=== PATIENT | female | born 1945 | race Caucasian/White ===

== ENCOUNTER 2019-09-11 20:45 | Inpatient (IN) | payer MEDICARE ==
[~2019-09-11] VITALS: Ht 170.2 cm; Wt 77.2 kg
--- NOTE | 2019-09-11 20:45 | NUR ---
Dr. Jacobs at bedside for MSE
--- NOTE | 2019-09-11 20:52 | NUR ---
Patient BIB [facility] via gurney c/o RIGHT ankle dislocation s/p fall. Patient A&O x4. Patient received 4mg of zofran in the field. pulses palpable on BLE. redness and discoloration noted on right ankle. patient states able to feel sensation when palpated. cap refill <3 sec. Breathing even and unlabored. no cough, denies SOB. Speech is clear and able to make needs known / follow commands. Denies any / GI distress.
[2019-09-11] MEDS ORDERED: ETOMIDATE 20 MG/10 ML VIAL IV ONE (21:00)
[2019-09-11] MEDS ORDERED: IV NORMAL SALINE 1000 ML BAG IV ONE (21:00)
[2019-09-11] MEDS ORDERED: [UNRECOGNIZED DRUG - REMARK] (21:01)
[2019-09-11] MEDS ORDERED: [UNRECOGNIZED DRUG - REMARK] (21:01)
[2019-09-11] MEDS ORDERED: [UNRECOGNIZED DRUG - REMARK] PO (21:01)
[2019-09-11] MEDS ORDERED: ETOMIDATE 20 MG/10 ML VIAL ONE (21:02)
--- NOTE | 2019-09-11 21:15 | NUR ---
Patient awake A&Ox4. Breathing even and unlabored. denies any discomfort at this time. at bedside
[2019-09-11 21:32] LABS: BASOPHILS % (AUTO) 0.7 % (0.0-2.0); EOSINOPHILS # (AUTO) 0.2 K/uL (0.0-0.7); EOSINOPHILS % (AUTO) 3.5 % (0.0-7.0); HEMATOCRIT 39.1 % (31.2-41.9); LYMPHOCYTES # (AUTO) 1.3 K/uL (20.0-40.0); LYMPHOCYTES % (AUTO) 23.9 % (20.5-51.5); MEAN CORPUSCULAR HEMOGLOBIN 38.6 uug (24.7-32.8); MEAN CORPUSCULAR HGB CONC 33 g/dL (32.3-35.6); MEAN CORPUSCULAR VOLUME 116.1 fL (75.5-95.3); MONOCYTES # (AUTO) 0.7 K/uL (2.0-10.0); MONOCYTES % (AUTO) 12.5 % (0.0-11.0); NEUTROPHILS # (AUTO) 3.2 K/uL (1.8-8.9); NEUTROPHILS % (AUTO) 59.4 % (38.5-71.5); PLATELET COUNT (AUTO) 267 K/uL (179-408); RED BLOOD CELL COUNT(AUTO) 3.37 MIL/uL (3.63-4.92); WHITE BLOOD COUNT (AUTO) 5.4 K/uL (3.8-11.8)
--- NOTE | 2019-09-11 21:32 | NUR ---
[facility] called for Panel placement. care of Arnoldo Lund NP
--- NOTE | 2019-09-11 21:35 | NUR ---
Paged Dr. Spencer for consult
[2019-09-11 21:41] LABS: CREATININE 0.6 mg/dL (0.6-1.3); POTASSIUM 3.6 mmol/L (3.5-5.1)
--- NOTE | 2019-09-11 21:58 | NUR ---
Called for Room / give report. No nurse assigned at this time
--- NOTE | 2019-09-11 22:09 | NUR ---
Dr. Jacobs speaking with Dr. Spencer
[2019-09-11] MEDS ORDERED: TRAMADOL HCL 50 MG TABLET ONE (22:14)
[2019-09-11] MEDS ORDERED: TRAMADOL HCL 50 MG TABLET PO ONE (22:15)
--- NOTE | 2019-09-11 22:30 | NUR ---
Arnoldo Lund E [employer]ER[employer] SPECIALIST at bedside for MSE
[2019-09-11] MEDS ORDERED: Z GUARD REMEDY PASTE 57 GM TUBE TOP PRN (22:45)
[2019-09-11] MEDS ORDERED: MAGNESIUM HYDROXIDE 30 ML LIQUID UDC PO PRN (22:45)
[2019-09-11] MEDS ORDERED: ACETAMINOPHEN 325 MG TABLET PO PRN (22:45)
[2019-09-11] MEDS ORDERED: MORPHINE SULFATE 2 MG/1 ML DISP.SYRIN IV PRN (22:45)
--- NOTE | 2019-09-12 00:30 | NUR ---
Admitted 74y/o Female under the care of Ashely CARROLL. Dx: Right ankle fx. Patient is A&Ox4, noted w/ sugar-tong splint on R leg. IV on L hand intact and patent. Patient on NPO. Admission protocol initiated. Oriented patient to her room and w/ the use of call light. Safety measures observed. Call light in reach
[2019-09-12] MEDS: IV NS 1000 ML 1,000 ML IV PRN ×2 (01:09→16:22)
[2019-09-12 01:50] VITALS: BP 157/79
[2019-09-12] MEDS: MORPHINE SULFATE 2 MG/1 ML DISP.SYRIN IV PRN ×3 (02:31→18:20)
[2019-09-12 06:02] LABS: BASOPHILS % (AUTO) 0.4 % (0.0-2.0); EOSINOPHILS # (AUTO) 0.1 K/uL (0.0-0.7); HEMATOCRIT 37.3 % (31.2-41.9); HEMOGLOBIN 12.5 g/dL (10.9-14.3); LYMPHOCYTES # (AUTO) 1.1 K/uL (20.0-40.0); LYMPHOCYTES % (AUTO) 12.4 % (20.5-51.5); MEAN CORPUSCULAR HEMOGLOBIN 38.7 uug (24.7-32.8); MEAN CORPUSCULAR HGB CONC 34 g/dL (32.3-35.6); MEAN CORPUSCULAR VOLUME 115.6 fL (75.5-95.3); MONOCYTES # (AUTO) 0.9 K/uL (2.0-10.0); MONOCYTES % (AUTO) 9.9 % (0.0-11.0); NEUTROPHILS # (AUTO) 7.1 K/uL (1.8-8.9); NEUTROPHILS % (AUTO) 76.3 % (38.5-71.5); PLATELET COUNT (AUTO) 252 K/uL (179-408); RED BLOOD CELL COUNT(AUTO) 3.23 MIL/uL (3.63-4.92); WHITE BLOOD COUNT (AUTO) 9.2 K/uL (3.8-11.8)
[2019-09-12 06:23] LABS: THYROID STIMULATING HORMONE 3.583 mIU/mL (0.358-3.740)
[2019-09-12 06:27] VITALS: BP 152/74
[2019-09-12 06:34] LABS: ALANINE AMINOTRANSFERASE 29 U/L (14-59); ALKALINE PHOSPHATASE 132 U/L (50-136); ASPARTATE AMINOTRANSFERASE 29 U/L (15-37); BILIRUBIN,TOTAL 0.4 mg/dL (0.2-1.0); CARBON DIOXIDE 25 mmol/L (21-32); CHLORIDE 106 mmol/L (98-107); CHOLESTEROL 240 mg/dL (<200); CREATININE 0.5 mg/dL (0.6-1.3); GLUCOSE 104 mg/dL (74-106); HDL CHOLESTEROL 119 mg/dL (40-60); MAGNESIUM 1.9 mg/dL (1.8-2.4); PHOSPHOROUS 4.2 mg/dL (2.5-4.9); POTASSIUM 4.6 mmol/L (3.5-5.1); TOTAL PROTEIN, SERUM 6.6 g/dL (6.4-8.2); TRIGLYCERIDES 50 MG/DL (30-150); UREA NITROGEN, BLOOD 7 mg/dL (7-18)
--- NOTE | 2019-09-12 07:06 | NUR ---
RECEIVED PATIENT ASLEEP IN BED, EASY TO AROUSE. PATIENT AOX4. PATIENT DENIES PAIN OR SOB AT THIS TIME. LEFT HAND IV IN PLACE AND FLUSHING WELL. SAFETY AND FALL PREVENTION IN PLACE. BED IN LOW POSITION AND LOCKED. CALL LIGHT IN REACH. WILL CONTINUE TO MONITOR.
[2019-09-12] MEDS ORDERED: DULO60CA45 PO (09:08)
[2019-09-12] MEDS ORDERED: BUTA-281 PO (09:09)
[2019-09-12] MEDS ORDERED: POTA10CA43 PO (09:12)
[2019-09-12] MEDS ORDERED: GABA-534 PO (09:13)
[2019-09-12] MEDS ORDERED: RABE20TA18 PO (09:14)
[2019-09-12] MEDS ORDERED: ROSU5TAB PO (09:17)
[2019-09-12] MEDS ORDERED: TOPI25TA49 PO (09:20)
[2019-09-12] MEDS ORDERED: FLUT100D IH (09:20)
[2019-09-12 11:02] VITALS: BP 158/79
[2019-09-12 11:30] VITALS: BP 103/47
[2019-09-12] MEDS ORDERED: POLYMYXIN B SULFATE 500,000 UNITS, BACITRACIN 50,000 UNITS, NORMAL SALINE 20 ML MC ONE ×3 (14:00)
[2019-09-12 15:00] VITALS: BP 175/86
--- NOTE | 2019-09-12 15:19 | NUR ---
CALLED THE OFFICE OF RENEA SANDRA TO LET HIM KNOW THAT THE PATIENT NEEDS CARDIAC CLEARANCE IN ORDER TO GO TO SURGERY SCHEDULED AT [address] WHITEHEAD. ALSO TO LET HIM KNOW THAT PATIENT B/P IS 175/86, HR 102/
--- NOTE | 2019-09-12 15:20 | NUR ---
PAGEOlivia HANKS TO NOTIFY NEED FOR CARDIOLOGY CLEARANCE FOR SURGERY. CALL BACK FROM RECEIVED, MD MADE AWARE OF PATIENT'S CURRENT CONDITION AND LATEST BP OF 175/86 AND MT OF 102. ORDER RECEIVED OF 10MG HYDRALAZINE IV X 1 DOSE PRN. AND TO TRANSFER PATIENT TO TELEMETRY, ORDERS READ BACK AND CARRIED OUT. SERGE HOLLAND NOTIFIED.
[2019-09-12] MEDS ORDERED: hydrALAZINE HCL 20 MG/1 ML VIAL IV ONE (15:45)
[2019-09-12] MEDS: TRAMADOL HCL 50 MG TABLET PO PRN (16:30)
[2019-09-12] MEDS ORDERED: hydrALAZINE HCL 20 MG/1 ML VIAL IV PRN (16:45)
--- NOTE | 2019-09-12 18:03 | NUR ---
PATIENT AWAKE IN BED, AOX4. RT. FOOT SWELLING, PULSES PALPABLE AND STRONG BLE. ABLE TO MOVE TOES OF RT FOOT. PATIENT COMPLAINS OF PAIN AND WAS GIVEN PAIN MEDICATION PRN ORDERED. PATIENT RESPONDS WELL TO MEDICATION. LT. HAND IV INTACT AND FLUSHING WELL. SAFETY AND FALL PREVENTION IN PLACE. CALL LIGHT IN REACH, BED IN LOW POSITION AND LOCKED. SURGERY PLAN FOR TOMORROW AT 1300. PATIENT ORDERED NPO AFTER MIDNIGHT. WILL REPORT TO REMEDIAL MASSEUR RN.
[2019-09-12] MEDS: LISINOPRIL 10 MG TABLET PO SCH (18:12)
--- NOTE | 2019-09-12 19:30 | NUR ---
Received patient in bed awake A&Ox4. at bedside. No SOB noted. R ankle noted swollen, splint in place and elevated w/ pillows. Safety measures observed. Call light in reach
[2019-09-12 20:00] VITALS: BP 148/72
[2019-09-12] MEDS ORDERED: MAG HYDROX/AL HYDROX/SIMETH 30 ML LIQUID UDC PO PRN (22:15)
--- NOTE | 2019-09-12 22:20 | NUR ---
Patient complained of heartburn and requesting for sleeping pill, informed Dr. Montes w/ n.o for Ambien 5mg PO QHS PRN and Mylanta 30ml Q6 PRN
[2019-09-12] MEDS: ZOLPIDEM 5 MG TABLET PO PRN (22:24)
[2019-09-13] VITALS (9 sets, daily range): BP systolic 139–166; BP diastolic 59–80
[2019-09-13] MEDS: MORPHINE SULFATE 2 MG/1 ML DISP.SYRIN IV PRN ×4 (00:35→12:23)
[2019-09-13] MEDS: ONDANSETRON 4 MG/2 ML VIAL IV PRN ×2 (05:50→08:53)
[2019-09-13] MEDS: IV NS 1000 ML 1,000 ML IV PRN (06:15)
--- NOTE | 2019-09-13 06:45 | NUR ---
Patient slept intermittently. c/o 8/10 R ankle pain, PRN pain medication given as ordered. SR on Tele monitor at 95bpm. All needs attended. Patient for sx today ORIF of R ankle at 1330. Remains on NPO. Consent signed placed at chart. Will endorse accordingly
[2019-09-13 07:26] LABS: BASOPHILS % (AUTO) 0.3 % (0.0-2.0); EOSINOPHILS % (AUTO) 0.7 % (0.0-7.0); HEMATOCRIT 36.6 % (31.2-41.9); HEMOGLOBIN 12.3 g/dL (10.9-14.3); LYMPHOCYTES # (AUTO) 0.6 K/uL (20.0-40.0); LYMPHOCYTES % (AUTO) 8.1 % (20.5-51.5); MEAN CORPUSCULAR HGB CONC 34 g/dL (32.3-35.6); MONOCYTES # (AUTO) 0.8 K/uL (2.0-10.0); MONOCYTES % (AUTO) 11.8 % (0.0-11.0); NEUTROPHILS # (AUTO) 5.5 K/uL (1.8-8.9); NEUTROPHILS % (AUTO) 79.1 % (38.5-71.5); PLATELET COUNT (AUTO) 221 K/uL (179-408); RED BLOOD CELL COUNT(AUTO) 3.18 MIL/uL (3.63-4.92)
[2019-09-13 07:38] LABS: CARBON DIOXIDE 27 mmol/L (21-32); CHLORIDE 100 mmol/L (98-107); CREATININE 0.5 mg/dL (0.6-1.3); GLUCOSE 123 mg/dL (74-106); UREA NITROGEN, BLOOD 5 mg/dL (7-18)
--- NOTE | 2019-09-13 08:00 | NUR ---
Received patient awake in bed. AAOx4. Complaining of R ankle pain; will medicate appropriately. R ankle BREANNA wrapped with swelling noted. Elevated with pillows to reduce swelling. IV on R FA intact and patent with NS running at 75cc/hr. Safety measures implemented. Will continue to monitor.
[2019-09-13 08:09] LABS: MEAN CORPUSCULAR VOLUME 114.9 fL (75.5-95.3)
[2019-09-13 08:10] LABS: MEAN CORPUSCULAR HEMOGLOBIN 38.7 uug (24.7-32.8)
[2019-09-13] MEDS: LISINOPRIL 10 MG TABLET PO SCH (08:36)
[2019-09-13] MEDS ORDERED: ONDANSETRON 4 MG/2 ML VIAL IV ONE (11:00)
[2019-09-13] MEDS ORDERED: VANCOMYCIN 1000 MG VIAL ONE (13:08)
[2019-09-13] MEDS ORDERED: BUPIVACAINE 0.25% 30 ML VIAL ONE (13:09)
--- NOTE | 2019-09-13 13:10 | NUR ---
Patient taken to surgery. Morphine given at 1233 reassessment not done.
--- NOTE | 2019-09-13 13:15 | NUR ---
NABIL LINDER NOTIFIED OF POTASSIUM LEVEL, ORDER RECEIVED OF 10 MEQ KCL IV X ONCE. ORDERS READ BACK AND CARRIED OUT.
[2019-09-13] MEDS ORDERED: MIDAZOLAM HCL 10 MG/2 ML VIAL ONE ×2 (13:20→13:42)
[2019-09-13] MEDS ORDERED: FENTANYL CITRATE 100 MCG/2 ML AMPUL ONE ×2 (13:21→16:14)
[2019-09-13] MEDS ORDERED: BUPIVACAINE/EPI PF 0.25% 30 ML VIAL ONE (13:22)
[2019-09-13] MEDS ORDERED: POTASSIUM CHLORIDE 50 ML IV SCH (13:30)
[2019-09-13] MEDS ORDERED: FLUMAZENIL 0.5 MG/5 ML VIAL ONE (15:31)
[2019-09-13] MEDS ORDERED: KETOROLAC TROMETHAMINE 30 MG INJ IM ONE (15:47)
[2019-09-13] MEDS ORDERED: LIDOCAINE-MPF 2% 5 ML VIAL MC ONE (15:47)
[2019-09-13] MEDS ORDERED: CEFAZOLIN 1 G VIAL IM ONE (15:47)
[2019-09-13] MEDS ORDERED: DEXAMETHASONE SOD PHOSPHATE 4 MG INJ IV ONE (15:47)
[2019-09-13] MEDS ORDERED: IV NORMAL SALINE 1000 ML BAG IV ONE ×2 (15:47)
[2019-09-13] MEDS ORDERED: PROPOFOL 200 MG/20 ML BOTTLE IV ONE (15:47)
[2019-09-13] MEDS ORDERED: LISI10TA5 PO (15:51)
[2019-09-13] MEDS ORDERED: HYDROCODONE/APAP 10-325 MG TABLET PO PRN (16:15)
[2019-09-13] MEDS: IV D5W-0.45% NS +20 KCL 1,000 ML IV PRN (17:06)
--- NOTE | 2019-09-13 19:00 | NUR ---
PATIENT ALERT ORIENTED, NO SOB NO CHEST PAIN, TELE MONITOR SINUS RHYTHM AT THIS TIME. PATIENT HAS NO COMPLAIN OF PAIN AT THIS TIME. R FOOT WITH DRESSING INTACT, COLOR WNL, WITH SLIGHT SWELLING NOTED, CHECK FOR NUMBNESS, KEPT ELEVATE WITH PILLOW. CALL LIGHT WITHIN REACH, CONT TO MONITOR.
--- NOTE | 2019-09-13 20:30 | NUR ---
kcl 10meq piggback not given, per Myesha or nurse, KCL 10 meq was given at OR.
[2019-09-13] MEDS: DEXTROSE 5% IV SCH (21:44)
[2019-09-13] MEDS: CEFAZOLIN IV SCH (21:44)
[2019-09-13] MEDS ORDERED: CEFAZOLIN 1 G in PREMIXED 1 EACH IV SCH (22:00)
[2019-09-13] MEDS: MORPHINE SULFATE 4 MG/1 ML DISP.SYRIN IV PRN (23:10)
[2019-09-14 01:00] VITALS: BP 133/67
[2019-09-14] MEDS: ONDANSETRON 4 MG/2 ML VIAL IV PRN ×2 (03:36→10:47)
--- NOTE | 2019-09-14 04:00 | NUR ---
PATIENT COMPLAIN OF NAUSEA BUT NOT VOMITING NOTED, MEDICATED WITH ZOFRAN WITH EFFECTIVE RESULT, CONT TO MONITOR.
[2019-09-14] MEDS: CEFAZOLIN IV SCH (05:15)
[2019-09-14] MEDS: DEXTROSE 5% IV SCH (05:15)
--- NOTE | 2019-09-14 05:26 | NUR ---
PATIENT ALERT ORIENTED, NO SOB NO CHEST PAIN, TELE MONITOR SINUS RHYTHM AT THIS TIME. PATIENT SLEPT MOST OF THE NIGHT, R FOOT WITH DRESSING, DRESSING DRY NO SIGNS OF BLEEDING NOTED, COLOR WNL, PATIENT ABLE TO FEEL WHEN FOOT IS BEING TOUCH, WITH SLIGHT SWELLING NOTED, KEPT FOOT ELEVATED WITH 2 PILLOWS, NO FURTHER EPISODE OF NAUSEA NOTED, PATIENT HAS MUSCLE PAIN ON THE NECK, WARM COMPRESS GIVEN WITH HELP. WILL CONT TO MONITOR.
[2019-09-14] MEDS: IV D5W-0.45% NS +20 KCL 1,000 ML IV PRN ×2 (06:23→21:30)
[2019-09-14] MEDS: TRAMADOL HCL 50 MG TABLET PO PRN ×2 (06:31→16:11)
[2019-09-14 06:49] VITALS: BP 140/69
--- NOTE | 2019-09-14 07:28 | NUR ---
PATIENT COMPLAIN OF MUSCLE NECK PAIN GIVEN WARM PACK WITH SOME HELP. PRN PAIN MEDS GIVEN ORDERED, ENDORSED TO NEXT SHIFT..
--- NOTE | 2019-09-14 08:00 | NUR ---
PATIENT ALERT ORIENTED, NO SOB NO CHEST PAIN, TELE MONITOR SINUS RHYTHM AT THIS TIME. R FOOT WITH DRESSING, DRESSING DRY NO SIGNS OF BLEEDING NOTED, COLOR WNL, PATIENT ABLE TO FEEL WHEN FOOT IS BEING TOUCH, PATIENT ABLE TO MOVE TOES, WITH SLIGHT SWELLING NOTED, KEPT FOOT ELEVATED WITH 2 PILLOWS. WILL CONT TO MONITOR FOR SAFETY AND COMFORT.
[2019-09-14 08:01] LABS: BASOPHILS % (AUTO) 0.1 % (0.0-2.0); HEMATOCRIT 32.5 % (31.2-41.9); HEMOGLOBIN 10.9 g/dL (10.9-14.3); LYMPHOCYTES # (AUTO) 0.6 K/uL (20.0-40.0); MEAN CORPUSCULAR HEMOGLOBIN 38.9 uug (24.7-32.8); MEAN CORPUSCULAR HGB CONC 34 g/dL (32.3-35.6); MEAN CORPUSCULAR VOLUME 116.2 fL (75.5-95.3); MONOCYTES # (AUTO) 1.3 K/uL (2.0-10.0); MONOCYTES % (AUTO) 14.3 % (0.0-11.0); NEUTROPHILS # (AUTO) 6.9 K/uL (1.8-8.9); NEUTROPHILS % (AUTO) 78.6 % (38.5-71.5); PLATELET COUNT (AUTO) 195 K/uL (179-408); WHITE BLOOD COUNT (AUTO) 8.8 K/uL (3.8-11.8)
[2019-09-14 08:03] LABS: CARBON DIOXIDE 25 mmol/L (21-32); CHLORIDE 101 mmol/L (98-107); CREATININE 0.5 mg/dL (0.6-1.3); GLUCOSE 157 mg/dL (74-106); POTASSIUM 3.1 mmol/L (3.5-5.1); UREA NITROGEN, BLOOD 6 mg/dL (7-18)
[2019-09-14 08:52] VITALS: BP 127/65
[2019-09-14] MEDS: LISINOPRIL 10 MG TABLET PO SCH (08:52)
[2019-09-14 11:30] VITALS: BP 124/61
--- NOTE | 2019-09-14 12:00 | NUR ---
PT RESTING IN BED. PT COMPLAINED OF NAUSEA. ANTIEMETIC GIVEN. NAUSEA SUBSIDED. NO ACUTE DISTRESS NOTED. NO SOB NOTED. CALL LIGHT WITHIN REACH. TELEMETRY MONITORED WITH SINUS RHYTHM. PT TO EVALUATE PT. WILL CONTINUE TO MONITOR PATIENT FOR SAFETY AND COMFORT.
[2019-09-14] MEDS ORDERED: POTASSIUM CHLORIDE 20 MEQ TAB.PRT.SR PO ONE (15:30)
[2019-09-14 16:30] VITALS: BP 118/60
--- NOTE | 2019-09-14 18:00 | NUR ---
PT RESTING COMFORTABLY IN BED. NO ACUTE DISTRESS OR SOB NOTED. PT IS MEDICATION AND DIET COMPLIANT. PT ALERT AND ORIENTED X3. PLEASANT AND COOPERATIVE. PT EVALUATED PT. WILL ENDORSE PATIENT ACCORDINGLY.
[2019-09-14] MEDS: ZOLPIDEM 5 MG TABLET PO PRN (20:49)
[2019-09-15 00:35] VITALS: BP 145/72
[2019-09-15] MEDS: MORPHINE SULFATE 4 MG/1 ML DISP.SYRIN IV PRN ×2 (01:11→06:08)
--- NOTE | 2019-09-15 03:23 | NUR ---
Received patient awake in bed. AAOx4. S/P ORIF on R ankle Day 1. R foot dressing intact. Able to wiggle toes. Slightly swollen, but not pitting. Elevated with pillows to reduce swelling. IV on R FA intact and patent with IV fluids running as ordered at 75cc/hr. Safety measures implemented. Will continue to monitor.
--- NOTE | 2019-09-15 03:24 | NUR ---
Patient is resting in bed at this time. No further complaints of any pain or discomfort. Able to sleep well after x1 dose of Ambien and x1 dose of Morphine 4mg for R foot/Neck pain. Sinus Rhythm on Tele @ 87.
[2019-09-15 04:54] VITALS: BP 133/67
[2019-09-15] MEDS: ONDANSETRON 4 MG/2 ML VIAL IV PRN (06:08)
--- NOTE | 2019-09-15 06:30 | NUR ---
Pt able to sleep through the night, but woke up at 0600 with complaints of continued neck pain and nausea. Morphine and Zofran given as ordered. Also provided active listening and light massage on area of discomfort. Appears to be slowly having positive effect. No signs of distress. Sinus Rhythm on tele @ 77.
[2019-09-15 07:54] LABS: CARBON DIOXIDE 28 mmol/L (21-32); CHLORIDE 100 mmol/L (98-107); CREATININE 0.5 mg/dL (0.6-1.3); GLUCOSE 134 mg/dL (74-106); POTASSIUM 3.2 mmol/L (3.5-5.1); UREA NITROGEN, BLOOD 5 mg/dL (7-18)
--- NOTE | 2019-09-15 08:00 | NUR ---
RECEIVED PT RESTING IN BED. NO ACUTE DISTRESS OR SOB NOTED. PT ALERT AND COOPERATIVE X3. BED LOCKED AND IN LOW POSITION. PT FEELS TACTILE STIMULI IN RIGHT TOES. PT MOVES RIGHT TOES. TOES PINK. PT DENIES PAIN AT THIS TIME. WILL CONTINUE TO MONITOR FOR SAFETY AND COMFORT.
[2019-09-15] MEDS: LISINOPRIL 10 MG TABLET PO SCH (08:47)
[2019-09-15] MEDS ORDERED: TRAM50TA2 PO (10:14)
[2019-09-15 11:40] VITALS: BP 139/68
[2019-09-15] MEDS: TRAMADOL HCL 50 MG TABLET PO PRN (11:50)
[2019-09-15] MEDS ORDERED: POTASSIUM CHLORIDE 20 MEQ TAB.PRT.SR PO ONE (13:45)
--- NOTE | 2019-09-15 13:54 | NUR ---
PT HAS BEEN DISCHARGED HOME. NO ACUTE DISTRESS OR SOB NOTED. DISCHARGE INSTRUCTIONS AND PRESCRIPTION GIVEN TO PATIENT WITH GOOD UNDERSTANDING. BELONGINGS LIST SIGNED. BELONGINGS AND VALUABLES RETURNED. WALKER PROVIDED TO PATIENT FOR NON WEIGHT BARING POST OP STATUS. PATIENT EVALUATED BY PT FOR WALKER USE PRIOR TO DISCHARGE. DR WHITEHEAD CONTACT INFO GIVEN TO PATIENT. PATIENT ESCORTED TO PRIVATE TRANSPORT BY [facility] STAFF. PATIENT ACCOMPANIED BY AND GRANDCHILD. Addendum: 09/15/19 at 1358 by LAUREN AYON RN IV LINE REMOVED INTACT.
== END 2019-09-15 13:50 | disposition home health service (06) | DRG 493 ==
LOC: ER 20:45 → MEDSURG3 09-12 00:23 → TELE3 09-12 14:30
PROVIDERS: ADMIT Nurse Practitioner Acute Care; ATTEND Nurse Practitioner Acute Care
PROC: 0QSGXZZ Reposition Right Tibia, External Approach (ICD-10-PCS; principal; 2019-09-11)
PROC: 0QSJ04Z Reposition Right Fibula with Internal Fixation Device, Open Approach (ICD-10-PCS; 2019-09-13)
PROC: 0QSG04Z Reposition Right Tibia with Internal Fixation Device, Open Approach (ICD-10-PCS; 2019-09-13)
DX: S82.851A Displaced trimalleolar fracture of right lower leg, initial encounter for closed fracture (principal); J98.11 Atelectasis; W10.8XXA Fall (on) (from) other stairs and steps, initial encounter; Y92.019 Unspecified place in single-family (private) house as the place of occurrence of the external cause; I11.0 Hypertensive heart disease with heart failure; I50.9 Heart failure, unspecified; F10.129 Alcohol abuse with intoxication, unspecified; F12.90 Cannabis use, unspecified, uncomplicated; Y90.6 Blood alcohol level of 120-199 mg/100 ml; K21.9 Gastro-esophageal reflux disease without esophagitis; E78.5 Hyperlipidemia, unspecified; Z96.653 Presence of artificial knee joint, bilateral; Z80.3 Family history of malignant neoplasm of breast; E87.6 Hypokalemia; M81.0 Age-related osteoporosis without current pathological fracture; J45.909 Unspecified asthma, uncomplicated; F41.9 Anxiety disorder, unspecified
CPT/HCPCS: 36415; 71045; 73600; 73610; 83735; 84100; 84443; 85025; 85730; 93005; 93307; A4663; G0378; G0480; G0500; J0360; J0690; J1100; J1885; J2250; J2270; J2405; J3010; J3370; J3480; J3490; J7030; J7060